=== PATIENT | female | born 1985 | race African-American/Black ===

== ENCOUNTER 2017-01-24 12:07 | Emergency (ER) | payer OTHER ==
[2017-01-24 12:12] VITALS: PULSE 77; TEMP 98.8; BMI 30.7
--- NOTE | 2017-01-24 12:46 | PDOC ---
History of Present Illness - General Chief Complaint: Pain Stated Complaint: LT SHOULDER PAIN Time Seen by Provider: 01/24/17 12:45 - History of Present Illness Initial Comments: 01/24/17 12:45 The patient is a year old female, with a significant past medical history of, who presents to the emergency department with The patient denies chest pain, shortness of breath, headache and dizziness. Denies fever, chills, nausea, vomit, diarrhea and constipation. Denies dysuria, frequency, urgency and hematuria. Allergies: Past surgical history: Social history: PMD - Past History - Past Medical History Allergies/Adverse Reactions: Allergies Allergy/AdvReac Type Severity Reaction Status Date / Time No Known Allergies Allergy Verified 01/24/17 12:12 Home Medications: Ambulatory Orders Vit/Iron Fumarate/FA [ Tablet] 1 each PO DAILY 08/06/16 Anemia: No Asthma: No Cancer: No Cardiac Disorders: No CVA: No COPD: No CHF: No Dementia: No Diabetes: No GI Disorders: No Disorders: No HTN: No Hypercholesterolemia: No Liver Disease: No Suicide Attempt (Hx): No Seizures: Yes Thyroid Disease: No - Surgical History Abdominal Surgery: No Appendectomy: No Cardiac Surgery: No Cholecystectomy: No Lung Surgery: No Neurologic Surgery: No Orthopedic Surgery: No - Immunization History Immunization Up to Date: Yes (06/2013 FLU) - Psycho/Social/Smoking Cessation Hx Anxiety: No Suicidal Ideation: No Smoking Status: No Smoking History: Never smoked Have you smoked in the past 12 months: No Number of Cigarettes Smoked Daily: 0 Information on smoking cessation initiated: No Hx Alcohol Use: No Drug/Substance Use Hx: No Substance Use Type: None Review of Systems - Review of Systems Comments:: 01/24/17 12:45 GENERAL/CONSTITUTIONAL: No fever or chills. No weakness. HEAD, EYES, EARS, NOSE AND THROAT: No change in vision. No ear pain or discharge. No sore throat. CARDIOVASCULAR: No chest pain or shortness of breath RESPIRATORY: No cough, wheezing, or hemoptysis. GASTROINTESTINAL: No nausea, vomiting, diarrhea or constipation. GENITOURINARY: No dysuria, frequency, or change in urination. MUSCULOSKELETAL: No joint or muscle swelling or pain. No neck or back pain. SKIN: No rash NEUROLOGIC: No headache, vertigo, loss of consciousness, or change in strength/ sensation. ENDOCRINE: No increased thirst. No abnormal weight change HEMATOLOGIC/LYMPHATIC: No anemia, easy bleeding, or history of blood clots. ALLERGIC/IMMUNOLOGIC: No hives or skin allergy. *Physical Exam - Vital Signs Last Vital Signs Temp Pulse Resp BP Pulse Ox 98.8 F 77 18 123/81 100 01/24/17 12:10 01/24/17 12:10 01/24/17 12:10 01/24/17 12:10 01/24/17 12:10 - Physical Exam Comments: 01/24/17 12:46 GENERAL: Awake, alert, and fully oriented, in no acute distress HEAD: No signs of trauma, normocephalic, atraumatic EYES: PERRLA, EOMI, sclera anicteric, conjunctiva clear ENT: Auricles normal inspection, hearing grossly normal, nares patent, oropharynx clear without exudates. Moist mucosa NECK: Normal ROM, supple, no lymphadenopathy, JVD, or masses LUNGS: No distress, speaks full sentences, clear to auscultation bilaterally HEART: Regular rate and rhythm, normal S1 and S2, no murmurs, rubs or gallops, peripheral pulses normal and equal bilaterally. ABDOMEN: Soft, nontender, normoactive bowel sounds. No guarding, no rebound. No masses EXTREMITIES: Normal inspection, Normal range of motion, no edema. No clubbing or cyanosis. NEUROLOGICAL: Cranial nerves II through XII grossly intact. Normal speech, normal gait, no focal sensorimotor deficits SKIN: Warm, Dry, normal turgor, no rashes or lesions noted.
[2017-01-24] MEDS ORDERED: KETOROLAC TROMETHAMINE 15 MG/ML VIAL IM ONE (13:15)
[2017-01-24] MEDS ORDERED: KETOROLAC TROMETHAMINE 15 MG/ML VIAL ONE (13:18)
--- NOTE | 2017-01-24 14:51 | PDOC ---
History of Present Illness - General Chief Complaint: Pain Stated Complaint: LT SHOULDER PAIN Time Seen by Provider: 01/24/17 12:45 - History of Present Illness Initial Comments: 01/24/17 14:43 31 F with no PMH presents to ER with 2 weeks of L shoulder pain. Pt denies trauma, denies falls. States that she has had progressively worsening pain in her L shoulder, radiating to her L upper back. Pt denies CP/SOB. Denies neck pain. Pt states that she has been carrying her baby in her left arm, which she thinks is exacerbating her pain. She presents today because the pain worsened to the point of limiting her strength. Pt denies numbness in her left arm. Denies weakness in any other extremity. Past History - Past Medical History Allergies/Adverse Reactions: Allergies Allergy/AdvReac Type Severity Reaction Status Date / Time No Known Allergies Allergy Verified 01/24/17 12:12 Home Medications: Ambulatory Orders NK [No Known Home Medication] 01/24/17 Anemia: No Asthma: No Cancer: No Cardiac Disorders: No CVA: No COPD: No CHF: No Dementia: No Diabetes: No GI Disorders: No Disorders: No HTN: No Hypercholesterolemia: No Liver Disease: No Suicide Attempt (Hx): No Seizures: Yes Thyroid Disease: No - Surgical History Abdominal Surgery: No Appendectomy: No Cardiac Surgery: No Cholecystectomy: No Lung Surgery: No Neurologic Surgery: No Orthopedic Surgery: No - Immunization History Immunization Up to Date: Yes (06/2013 FLU) - Psycho/Social/Smoking Cessation Hx Anxiety: No Suicidal Ideation: No Smoking Status: No Smoking History: Never smoked Have you smoked in the past 12 months: No Number of Cigarettes Smoked Daily: 0 Information on smoking cessation initiated: No Hx Alcohol Use: No Drug/Substance Use Hx: No Substance Use Type: None Review of Systems - Review of Systems Comments:: 01/24/17 14:45 "GENERAL/CONSTITUTIONAL: No fever or chills. No weakness. HEAD, EYES, EARS, NOSE AND THROAT: No change in vision. No ear pain or discharge. No sore throat. CARDIOVASCULAR: No chest pain or shortness of breath. RESPIRATORY: No cough, wheezing, or hemoptysis. GASTROINTESTINAL: No nausea, vomiting, diarrhea or constipation. GENITOURINARY: No dysuria, frequency, or change in urination. MUSCULOSKELETAL: + L shoulder pain SKIN: No rash NEUROLOGIC: No headache, vertigo, loss of consciousness, or change in strength/ sensation. ENDOCRINE: No increased thirst. No abnormal weight change. HEMATOLOGIC/LYMPHATIC: No anemia, easy bleeding, or history of blood clots. ALLERGIC/IMMUNOLOGIC: No hives or skin allergy. " *Physical Exam - Vital Signs Last Vital Signs Temp Pulse Resp BP Pulse Ox 98.8 F 77 18 123/81 100 01/24/17 12:10 01/24/17 12:10 01/24/17 12:10 01/24/17 12:10 01/24/17 12:10 - Physical Exam Comments: 01/24/17 14:46 "GENERAL: Awake, alert, and fully oriented, in no acute distress HEAD: No signs of trauma EYES: PERRLA, EOMI, sclera anicteric, conjunctiva clear ENT: Auricles normal inspection, hearing grossly normal, nares patent, oropharynx clear without exudates. Moist mucosa NECK: Normal ROM, supple, no lymphadenopathy, JVD, or masses LUNGS: Breath sounds equal, clear to auscultation bilaterally. No wheezes, and no crackles HEART: Regular rate and rhythm, normal S1 and S2, no murmurs, rubs or gallops ABDOMEN: Soft, nontender, normoactive bowel sounds. No guarding, no rebound. No masses EXTREMITIES: L shoulder with no deformity, abduction and internal rotation limited 2/2 pain. Full passive ROM. Distal pulses intact, sensation intact. frozen pie maker strength 5/5. BACK: no midline tenderness, mild L paraspinal c-spine TTP. NEUROLOGICAL: Cranial nerves II through XII grossly intact. Normal speech, normal gait SKIN: Warm, Dry, normal turgor, no rashes or lesions noted. " ED Treatment Course - RADIOLOGY Radiology Studies Ordered: Category Date Time Status SHOULDER-LEFT [RAD] Stat Radiology 01/24/17 13:15 Completed - Medications Given in the ED: ED Medications Discontinued Medications Generic Name Dose Route Start Last Admin Trade Name Freq PRN Reason Stop Dose Admin Ketorolac Tromethamine 15 mg 01/24/17 13:15 01/24/17 13:26 Toradol Injection - IM 01/24/17 13:16 15 mg ONCE ONE Administration Medical Decision Making - Medical Decision Making 01/24/17 14:47 31 F with 2 weeks of L shoulder pain. Likely rotator cuff injury vs tendinopathy vs impingement vs radiculopathy 2/2 carrying baby in left arm. - XR shoulder - Toradol 01/24/17 14:48 XR negative Pt to f/u with PMD for outpt MRI of C spine and shoulder. *DC/Admit/Observation/Transfer Diagnosis at time of Disposition: Left shoulder pain - Discharge Dispostion Disposition: HOME Condition at time of disposition: Good - Patient Instructions Printed Discharge Instructions: DI for Shoulder Pain Additional Instructions: Take ibuprofen or aleve every 8 hours as needed for pain. You may have a rotator cuff injury or a pinched nerve. Please follow up with your primary care doctor within 1 week. You may need an MRI of your neck or shoulder for further evaluation. Be sure to rest your shoulder and avoid heavy lifting, but begin moving it as much as tolerable to prevent frozen shoulder. - Attestations Physician Attestion: 01/24/17 14:53 I, Dr. Chiki Linares MD, attest that this document has been prepared under my direction and personally reviewed by me in its entirety. I further attest, that it accurately reflects all work, treatment, procedures and medical decision -making performed by me.
[2017-01-24 15:04] VITALS: BP 118/74
== END 2017-01-24 15:05 | disposition home or self-care (01) ==
LOC: JER 12:07 → JERFT 12:07 → JER 15:05
PROC: 3E0233Z Introduction of Anti-inflammatory into Muscle, Percutaneous Approach (ICD-10-PCS; principal; 2017-01-24)
DX: M25.512 Pain in left shoulder (principal); Y92.038 Other place in apartment as the place of occurrence of the external cause
CPT/HCPCS: 73030-TC-LT; 96372; 99282-25

== ENCOUNTER 2018-03-02 16:25 | Emergency (ER) | payer OTHER ==
--- NOTE | 2018-03-02 16:39 | PDOC ---
Rapid Medical Evaluation Chief Complaint: Pain Time Seen by Provider: 03/02/18 16:37 Medical Evaluation: Allergies Allergy/AdvReac Type Severity Reaction Status Date / Time No Known Allergies Allergy Verified 11/27/17 14:02 03/02/18 16:37 I have performed a brief in person evaluation of this patient. The patient presents with a chief complaint of: Right hand pain Pt is a 32 YO female who states "I feel like something is sticking out of my right hand." Pt denies injury/trauma. Pertinent PE: Skin: Clear Lungs: Clear Heart: RRR Abd: Nontender MS: Pt has pain upon palpation to the right thumb, no rotational deformity, can make an okay sign and fist without difficulty. Neuro intact. Neuro: Alert and oriented Psych: Appropriate affect I have ordered the following: right hand xray The patient will proceed to: pt will go to [facility] for further evaluation. Discharge Disposition - Diagnosis Hand pain, right - Referrals Referrals: Mary Finnegan [Primary Care Provider] - - Patient Instructions - Post Discharge Activity
[2018-03-02 16:40] VITALS: BP 127/50; PULSE 77; TEMP 98.7; BMI 32.5
--- NOTE | 2018-03-02 17:26 | PDOC ---
History of Present Illness - General Chief Complaint: Pain Stated Complaint: RIGHT HAND PAIN Time Seen by Provider: 03/02/18 16:37 - History of Present Illness Initial Comments: 32-year-old female with a past medical history significant for depression and seizure disorder. She takes Keppra and Abilify presents for evaluation of atraumatic onset of right wrist pain. She states yesterday when she was going to open a door, she felt a sharp pain in her right wrist. She points to the radial aspect on the volar surface of the right wrist. No other associated symptoms. 03/02/18 17:23 Past History - Past Medical History Allergies/Adverse Reactions: Allergies Allergy/AdvReac Type Severity Reaction Status Date / Time No Known Allergies Allergy Verified 03/02/18 16:37 Home Medications: Ambulatory Orders NK [No Known Home Medication] 03/02/18 Anemia: No Asthma: No Cancer: No Cardiac Disorders: No CVA: No COPD: Yes CHF: No Dementia: No Diabetes: No GI Disorders: No Disorders: No HTN: No Hypercholesterolemia: No Liver Disease: No Psychiatric Problems: Yes (derpression) Seizures: Yes Thyroid Disease: No - Surgical History Abdominal Surgery: Yes (HERNIA) Appendectomy: No Cardiac Surgery: No Cholecystectomy: No Lung Surgery: No Neurologic Surgery: No Orthopedic Surgery: No - Immunization History Immunization Up to Date: Yes (06/2013 FLU) - Suicide/Smoking/Psychosocial Hx Smoking Status: No Smoking History: Never smoked Have you smoked in the past 12 months: No Number of Cigarettes Smoked Daily: 0 Information on smoking cessation initiated: No Hx Alcohol Use: No Drug/Substance Use Hx: No Substance Use Type: None Review of Systems - Review of Systems Musculoskeletal: Yes: See HPI, Joint Pain All Other Systems: Reviewed and Negative *Physical Exam - Vital Signs Last Vital Signs Temp Pulse Resp BP Pulse Ox 98.7 F 77 18 127/50 L 100 03/02/18 16:37 03/02/18 16:37 03/02/18 16:37 03/02/18 16:37 03/02/18 16:37 - Physical Exam Comments: Right wrist skin color and temperature are normal, there is no swelling. Range of motion is full and nonpainful. There is a small nonfluctuant tender freely mobile firm mass on the radial aspect of the volar surface of the wrist about subcentimeter in diameter. There is associated tenderness with normal light overlying skin color and temperature. There are no gross sensorimotor deficits she is neurovascularly intact. 03/02/18 17:24 Medical Decision Making - Medical Decision Making X-ray show no evidence of fracture trimer destructive process. This is a ganglion cyst which can be treated conservatively ORBIT operative intervention. I will refer her to hand surgery for further evaluation and treatment options. 03/02/18 17:24 *DC/Admit/Observation/Transfer Diagnosis at time of Disposition: Ganglion cyst of volar aspect of right wrist Diagnosis at time of Disposition: (Ruled Out): Hand pain, right, Ganglion cyst of dorsum of right wrist - Discharge Dispostion Disposition: HOME Condition at time of disposition: Stable Decision to Admit order: No - Referrals Referrals: Mary Finnegan [Primary Care Provider] - Steven Flores MD [Staff Physician] - - Patient Instructions Printed Discharge Instructions: DI Ganglion Cyst, Ganglion Cyst Additional Instructions: Return to the emergency room should symptoms worsen ago on resolved. May take Tylenol and Motrin as directed for pain. Follow-up with hand surgery in one to 2 days for further evaluation and treatment options. - Post Discharge Activity
== END 2018-03-02 17:30 | disposition home or self-care (01) ==
LOC: JERFT 16:25
DX: M67.431 Ganglion, right wrist (principal); G40.909 Epilepsy, unspecified, not intractable, without status epilepticus; F32.9 Major depressive disorder, single episode, unspecified
CPT/HCPCS: 73130-TC-RT-FY; 99281-25

== ENCOUNTER 2018-04-10 19:54 | Emergency (ER) | payer OTHER ==
--- NOTE | 2018-04-10 20:00 | PDOC ---
Rapid Medical Evaluation Time Seen by Provider: 04/10/18 20:00 Medical Evaluation: Allergies Allergy/AdvReac Type Severity Reaction Status Date / Time No Known Allergies Allergy Verified 03/02/18 16:37 04/10/18 20:00 I have performed a brief in person evaluation of this patient. +H/O seizure/last seizre in Jan The patient presents with a chief complaints of: cp to left shoulder with left temporal HAx2h while shopping at [employer]. Pt denies stress while shopping today. LMP:03/21/2018 Pertinent physical exam findings:L/S CTA, RRR S1S2 I have ordered the following: cbc/cmp/cardiac profile, ua, upreg, ekg ekg done in triage The patient will proceed to the ED for further evaluation.
[2018-04-10 20:14] VITALS: BP 149/78; PULSE 75; TEMP 98.5; BMI 32.4
--- NOTE | 2018-04-10 20:25 | PDOC ---
History of Present Illness - General Chief Complaint: Chest Pain Stated Complaint: CHEST PAIN Time Seen by Provider: 04/10/18 20:00 - History of Present Illness Initial Comments: 32 year odl female with PMH of seizures (last one 2 months prior, on Keppra) presenting with sudden onset left sided chest pain for the past three hours. [place] and began to feel very weak and lightheaded then felt a left sided chest pain that radiated to her shoulder, with a pressure-like, 5/10 intensity, non-exertional, and not copresenting with nausea/ vomiting. Patient denies any recent travel, OCP use, history of clots, family MIs, but does have one aunt who had a DVT. She also noticed some bilateral thigh pain while walking as well. Denies SOB, cough, fevers, chills, or other symptoms. 04/10/18 20:55 Past History - Past Medical History Allergies/Adverse Reactions: Allergies Allergy/AdvReac Type Severity Reaction Status Date / Time No Known Allergies Allergy Verified 03/02/18 16:37 Home Medications: Ambulatory Orders NK [No Known Home Medication] 03/02/18 Anemia: No Asthma: No Cancer: No Cardiac Disorders: No CVA: No COPD: Yes CHF: No Dementia: No Diabetes: No GI Disorders: No Disorders: No HTN: No Hypercholesterolemia: No Liver Disease: No Psychiatric Problems: Yes (derpression) Seizures: Yes Thyroid Disease: No - Surgical History Abdominal Surgery: Yes (HERNIA) Appendectomy: No Cardiac Surgery: No Cholecystectomy: No Lung Surgery: No Neurologic Surgery: No Orthopedic Surgery: No - Immunization History Immunization Up to Date: Yes (06/2013 FLU) - Suicide/Smoking/Psychosocial Hx Smoking Status: No Smoking History: Never smoked Have you smoked in the past 12 months: No Number of Cigarettes Smoked Daily: 0 Information on smoking cessation initiated: No Hx Alcohol Use: No Drug/Substance Use Hx: No Substance Use Type: None Review of Systems - Review of Systems Constitutional: No: Chills, Diaphoresis, Fever, Loss of Appetite HEENTM: No: Blurred Vision, Tearing, Double Vision Respiratory: No: Cough, Orthopnea, Shortness of Breath Cardiac (ROS): No: Chest Pain, Edema, Irregular Heart Rate ABD/GI: No: Diarrhea, Nausea, Vomiting : No: Burning, Dysuria, Discharge Musculoskeletal: No: Back Pain, Joint Pain, Joint Swelling Integumentary: No: Lesions, Lumps, Pallor Neurological: Yes: Seizure. No: Headache, Numbness, Paresthesia, Unsteady Gait Psychiatric: No: Anxiety, Depression Endocrine: No: Excessive Sweating, Flushing, Unexplained Weight Gain *Physical Exam - Vital Signs Last Vital Signs Temp Pulse Resp BP Pulse Ox 98.5 F 75 20 149/78 100 04/10/18 20:12 04/10/18 20:12 04/10/18 20:12 04/10/18 20:12 04/10/18 20:12 - Physical Exam General Appearance: Yes: Nourished, Appropriately Dressed. No: Apparent Distress HEENT: positive: EOMI, CATHERINE, Normal ENT Inspection, Normal Voice Neck: positive: Trachea midline, Normal Thyroid, Supple. negative: Tender, Rigid Respiratory/Chest: positive: Chest Tender (TTP over left 2nd and 3rd rib.), Lungs Clear, Normal Breath Sounds. negative: Respiratory Distress, Accessory Muscle Use Cardiovascular: positive: Regular Rhythm, Regular Rate Gastrointestinal/Abdominal: positive: Normal Bowel Sounds, Flat, Soft. negative : Tender Lymphatic: negative: Adenopathy, Tenderness Musculoskeletal: positive: Normal Inspection. negative: CVA Tenderness Extremity: positive: Normal Capillary Refill, Normal Inspection, Normal Range of Motion. negative: Tender Integumentary: positive: Normal Color, Dry, Warm Neurologic: positive: Fully Oriented, Alert, Normal Mood/Affect, Normal Response , Motor Strength 5/5 ED Treatment Course - LABORATORY CBC & Chemistry Diagram: 04/10/18 20:14 04/10/18 20:14 Medical Decision Making - Medical Decision Making 32 year odl with reproducible chest pain on the right side of her upper chest for the past few hours that is non-exertional and does not cause SOB. Ruled out by PERC criteria for PE. EKG showing rate 67, KY 154, QRS 92, QTc 426, normal axis and no st-t wave changes, prolonged QT, Brugada signs, or delta wave. Labs wnl, and CXR also clear. Pain improved with ibuprofen 600, 1L NS, and ofirmev. Will DC with Tylenol and ibuprofen use instructions along with f/u with neurologist tye. 04/10/18 21:45 *DC/Admit/Observation/Transfer Diagnosis at time of Disposition: Chest pain Qualifiers: Chest pain type: unspecified Qualified Code(s): R07.9 - Chest pain, unspecified Headache Qualifiers: Headache type: unspecified Headache chronicity pattern: acute headache Intractability: not intractable Qualified Code(s): R51 - Headache - Discharge Dispostion Disposition: HOME Condition at time of disposition: Improved Decision to Admit order: No - Referrals Referrals: Mary Finnegan [Primary Care Provider] - Alona Chen MD [Staff Physician] - - Patient Instructions Printed Discharge Instructions: DI for Atypical Chest Pain, DI for Headache Additional Instructions: Please use Tylenol and ibuprofen for the headache and chest pain. Please follow up with Dr. Vernon next week. Please return to the Ed if you have new or worsening symptoms. - Post Discharge Activity Forms/Work/School Notes: Back to Work
[2018-04-10 20:34] LABS: BASO % 0.2 % (0-2.0); EOS % 0.4 % (0-4.5); HEMATOCRIT 34.2 % (32.4-45.2); HEMOGLOBIN 12.2 GM/dL (10.7-15.3); LYMPH % 17.1 % (8-40); MCH 30.1 pg (25.7-33.7); MCHC 35.8 g/dl (32.0-36.0); MEAN CELL VOLUME 84.1 fl (80-96); MEAN PLT VOLUME 9.1 fl (7.5-11.1); MONO % 3.8 % (3.8-10.2); NEUT % 78.5 % (42.8-82.8); PLATELET COUNT 249 K/MM3 (134-434); RBC 4.06 M/mm3 (3.60-5.2); RDW 13.7 % (11.6-15.6); WHITE BLOOD COUNT 11.8 K/mm3 (4.0-10.0)
[2018-04-10 20:37] LABS: URINE APPEARANCE CLOUDY; URINE BILIRUBIN NEGATIVE (<2.0 mg/dL); URINE COLOR LTYELLOW; URINE GLUCOSE (UA) NEGATIVE (NEGATIVE); URINE KETONE NEGATIVE (NEGATIVE); URINE LEUK ESTERASE 1+ (NEGATIVE); URINE NITRITE NEGATIVE (NEGATIVE); URINE PROTEIN NEGATIVE (NEGATIVE); URINE UROBILINOGEN NEGATIVE mg/dL (0.2-1.0)
[2018-04-10 20:39] LABS: HCG,QUALITATIVE URINE Negative
[2018-04-10] MEDS ORDERED: IBUPROFEN 600 MG TABLET (FP) PO ONE ×2 (20:54→21:35)
[2018-04-10] MEDS ORDERED: SODIUM CHLORIDE 0.9% 500 ML INFUS.BAG IV ONE (20:55)
[2018-04-10 20:56] LABS: EPI CELLS MANY /HPF (FEW); URINE MUCUS RARE
[2018-04-10 21:02] LABS: BLOOD UREA NITROGEN 15 mg/dL (7-18); CHLORIDE 105 mmol/L (98-107); CO2 26 mmol/L (21-32); CREATININE 0.8 mg/dL (0.55-1.3); GLUCOSE,RANDOM 90 mg/dL (74-106); POTASSIUM 3.8 mmol/L (3.5-5.1); SODIUM 139 mmol/L (136-145)
[2018-04-10 21:03] LABS: ALBUMIN 3.6 g/dl (3.4-5.0); ALK PHOS 69 U/L (45-117); ANION GAP 9 MMOL/L (8-16); BILIRUBIN,TOTAL 0.2 mg/dL (0.2-1); CALCIUM 8.6 mg/dL (8.5-10.1); SGOT/AST 10 U/L (15-37); SGPT/ALT 13 U/L (13-61); TOT PROT 7.5 g/dl (6.4-8.2)
[2018-04-10] MEDS ORDERED: ACETAMINOPHEN 1000 MG/100 ML VIAL (NON FORMULARY) IVPB ONE (21:52)
--- NOTE | 2018-04-10 22:05 | PDOC ---
Attending Attestation - Resident Resident Name: Jamie Zuniga - ED Attending Attestation I have performed the following: I have examined & evaluated the patient, The case was reviewed & discussed with the resident, I agree w/resident's findings & plan - HPI HPI: 04/10/18 22:41 Home with - Medical Decision Making 04/10/18 21:53 Pt comes with feeling of heat and dizziness and weakness when she went to [employer] today for black Friday shopping. She ate enough breakfast and she had slept well. States that she had taken off her winter coat because she felt hot. She was nervous because she developed a headache at the store and she was worried that she would have a seizure Pt is compliant with her daily 1000mg of keppra. However, her last seizure was 2 months ago and she gets breakthru seizures. 04/10/18 22:37 Pt will follow with her neurologist. Labs are normal, and her headache is improving with motrin and tylenol and IV saline bolus. 04/10/18 22:42 Home with neuro follow up. <Narcisa Deshpande - Last Filed: 04/10/18 22:36> - HPI HPI: 04/10/18 22:57 The patient is a 32 year old female with past medical history significant for seizures (on 1000mg Keppra) presents to the emergency department with chest pain. The patient reports she was at [employer] earlier today when an acute onset of dizziness presented, the patient states she had to take off her jacket and had for sit down for a second. The patient following the episode, her chest started to hurt and L. sided headache. The patient reports her last seizure episode was 2 months ago. Denies fever, chills, shortness of breath, weakness, numbness, loss of sensation. Allergies: NKA Neurologist: Dr. Chen. - Physicial Exam PE: 04/10/18 22:58 GENERAL: Awake, alert, and fully oriented, in no acute distress HEAD: No signs of trauma EYES: PERRLA, EOMI, sclera anicteric, conjunctiva clear ENT: Auricles normal inspection, hearing grossly normal, nares patent, oropharynx clear without exudates. Moist mucosa NECK: Normal ROM, supple, no lymphadenopathy, JVD, or masses LUNGS: Breath sounds equal, clear to auscultation bilaterally. No wheezes, and no crackles HEART: Regular rate and rhythm, normal S1 and S2, no murmurs, rubs or gallops ABDOMEN: No flank pain. Soft, nontender, normoactive bowel sounds. No guarding , no rebound. No masses. EXTREMITIES: Normal range of motion, no edema. No clubbing or cyanosis. No cords, erythema, or tenderness NEUROLOGICAL: 5/5 strength. Cranial nerves II through XII grossly intact. Normal speech, normal gait SKIN: Warm, Dry, normal turgor, no rashes or lesions noted. <Gretel Gibson - Last Filed: 04/10/18 22:59>
[2018-04-10] MEDS ORDERED: ACETAMINOPHEN INJECTION 100 ML IVPB ONE (22:09)
--- NOTE | 2018-04-11 11:59 | EKG ---
Test Reason : Blood Pressure : / mmHG Vent. Rate : 067 BPM Atrial Rate : 067 BPM P-R Int : 154 ms QRS Dur : 092 ms QT Int : 404 ms P-R-T Axes : 048 053 045 degrees QTc Int : 426 ms NORMAL SINUS RHYTHM WITH SINUS ARRHYTHMIA NORMAL ECG WHEN COMPARED WITH ECG OF 27-DEC-2014 16:03, NO SIGNIFICANT CHANGE WAS FOUND Confirmed by SURI SWIFT MD ([id number]) on 04/11/2018 11:59:34 AM Referred By: Confirmed By:SURI SWIFT MD
== END 2018-04-10 23:14 | disposition home or self-care (01) ==
LOC: JER 19:54
PROC: 3E033NZ Introduction of Analgesics, Hypnotics, Sedatives into Peripheral Vein, Percutaneous Approach (ICD-10-PCS; principal; 2018-04-10)
DX: R07.9 Chest pain, unspecified (principal); R51 Headache; G40.909 Epilepsy, unspecified, not intractable, without status epilepticus
CPT/HCPCS: 36415; 71046-TC-FY; 80053; 81003; 81015; 82550; 84484; 84703; 85025; 93005; 93010; 96374; 99284-25; J0131

== ENCOUNTER 2018-07-18 17:24 | Emergency (ER) | payer OTHER ==
[2018-07-18 18:07] VITALS: BP 109/70; PULSE 77; TEMP 98.5; BMI 32.4
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
== END 2018-07-18 19:56 | disposition home or self-care (01) ==
LOC: JERFT 17:24
DX: T23.102A Burn of first degree of left hand, unspecified site, initial encounter (principal); T23.012A Burn of unspecified degree of left thumb (nail), initial encounter; T22.112A Burn of first degree of left forearm, initial encounter; X10.2XXA Contact with fats and cooking oils, initial encounter; Y93.G3 Activity, cooking and baking; Y92.030 Kitchen in apartment as the place of occurrence of the external cause; Y99.8 Other external cause status
CPT/HCPCS: 99281-25

== ENCOUNTER 2019-06-15 18:42 | Emergency (ER) | payer OTHER ==
[2019-06-15 18:54] VITALS: BP 134/73; PULSE 103; TEMP 100.2; BMI 34.6
[2019-06-15] MEDS ORDERED: ACETAMINOPHEN 325 MG TABLET (FP) ONE (20:26)
[2019-06-15] MEDS ORDERED: ONDANSETRON *ODT* 4 MG TABLET ONE (20:26)
[2019-06-15] MEDS ORDERED: ONDANSETRON *ODT* 4 MG TABLET SL ONE (20:27)
[2019-06-15] MEDS ORDERED: ACETAMINOPHEN 325 MG TABLET (FP) PO ONE (20:28)
--- NOTE | 2019-06-15 21:45 | PDOC ---
History of Present Illness <WayneAmber Sania - Last Filed: 06/15/19 21:51> - History of Present Illness Initial Comments: Ms. Guzman is a 33 y/o female with no significant PMH presenting today with fever, nausea, vomiting x6, that started this afternoon around 1pm. Reports that she was visiting her mom who has similar symptoms. Denies chills. Denies chest pain or shortness of breath. Denies any abdominal pain. Reports muscle aches in both legs. Reports associated diarrhea. Denies dysuria. Denies blood in the vomit or stool. <Asim Rosario - Last Filed: 06/15/19 22:29> - General Chief Complaint: Vomiting/Diarrhea Stated Complaint: VOMITING/DIARHHEA Time Seen by Provider: 06/15/19 21:18 Past History <WayneAmber Sania - Last Filed: 06/15/19 21:51> - Past Medical History Anemia: No Asthma: No Cancer: No Cardiac Disorders: No CVA: No COPD: Yes CHF: No Dementia: No Diabetes: No GI Disorders: No Disorders: No HTN: No Hypercholesterolemia: No Liver Disease: No Psychiatric Problems: Yes (derpression) Seizures: Yes Thyroid Disease: No - Surgical History Abdominal Surgery: Yes (HERNIA) Appendectomy: No Cardiac Surgery: No Cholecystectomy: No Lung Surgery: No Neurologic Surgery: No Orthopedic Surgery: No - Immunization History Immunization Up to Date: Yes (06/2013 FLU) - Psycho Social/Smoking Cessation Hx Smoking Status: No Smoking History: Never smoked Have you smoked in the past 12 months: No Number of Cigarettes Smoked Daily: 0 Hx Alcohol Use: No Drug/Substance Use Hx: No Substance Use Type: None <Asim Rosario - Last Filed: 06/15/19 22:29> - Past Medical History Allergies/Adverse Reactions: Allergies Allergy/AdvReac Type Severity Reaction Status Date / Time No Known Allergies Allergy Verified 06/15/19 18:51 Home Medications: Ambulatory Orders Ondansetron HCl [Zofran] 8 mg PO TID 3 Days #9 tablet 06/15/19 Review of Systems - Review of Systems Comments:: GENERAL/CONSTITUTIONAL: Reports fever. No chills. No weakness._ HEAD, EYES, EARS, NOSE AND THROAT: No change in vision. No change in hearing. No sore throat._ CARDIOVASCULAR: No chest pain or shortness of breath_ RESPIRATORY: Denies cough, hemoptysis_ GASTROINTESTINAL: Reports nausea, vomiting, diarrhea. GENITOURINARY: No dysuria, frequency, or change in urination._ MUSCULOSKELETAL: Reports bilateral lower extremity muscle aches. No neck or back pain._ SKIN: No rash_ NEUROLOGIC: No headache, vertigo, loss of consciousness, or change in strength/ sensation._ ENDOCRINE: No increased thirst. No abnormal weight change_ HEMATOLOGIC/LYMPHATIC: No anemia, easy bleeding, or history of blood clots._ ALLERGIC/IMMUNOLOGIC: No hives or skin allergy._ <Asim Rosario - Last Filed: 06/15/19 22:29> *Physical Exam - Vital Signs Last Vital Signs Temp Pulse Resp BP Pulse Ox 100.2 F H 103 H 16 134/73 99 06/15/19 18:51 06/15/19 18:51 06/15/19 18:51 06/15/19 18:51 06/15/19 18:51 <Amber Black - Last Filed: 06/15/19 21:51> - Vital Signs Last Vital Signs Temp Pulse Resp BP Pulse Ox 100.2 F H 103 H 16 134/73 99 06/15/19 18:51 06/15/19 18:51 06/15/19 18:51 06/15/19 18:51 06/15/19 18:51 - Physical Exam GENERAL: Awake, alert, and oriented to person/place/time, in no acute distress_ HEAD: No signs of trauma, normoc ephalic, atraumatic _ EYES: PERRLA, EOMI, sclera anicteric, conjunctiva clear_ ENT: Hearing grossly normal, nares patent, oropharynx clear without exudates. No uvular deviation. Moist mucosa_ NECK: Normal ROM, supple, no lymphadenopathy, JVD, or masses_ LUNGS: No distress, speaks in full sentences, clear to auscultation bilaterally _ HEART: Regular rate and rhythm, normal S1 and S2, no murmurs appreciated, peripheral pulses normal and equal bilaterally._ ABDOMEN: Soft, nontender, normoactive bowel sounds. No guarding, no rebound. No masses_ EXTREMITIES: Normal inspection, Normal range of motion, no edema. No clubbing or cyanosis_ NEUROLOGICAL: Cranial nerves II through XII grossly intact. Normal speech, normal gait, no focal sensorimotor deficits _ SKIN: Warm, Dry, normal turgor, no rashes or lesions noted_ <Asim Rosario - Last Filed: 06/15/19 22:29> ED Treatment Course - Medications Given in the ED: ED Medications Discontinued Medications Generic Name Dose Route Start Last Admin Trade Name Freq PRN Reason Stop Dose Admin Acetaminophen 975 mg 06/15/19 20:28 06/15/19 20:28 Tylenol - PO 06/15/19 20:29 975 mg NOW ONE Administration Ondansetron HCl 4 mg 06/15/19 20:27 06/15/19 20:28 Zofran Odt - SL 06/15/19 20:28 4 mg NOW ONE Administration <Amber Black - Last Filed: 06/15/19 21:51> - Medications Given in the ED: ED Medications Discontinued Medications Generic Name Dose Route Start Last Admin Trade Name Freq PRN Reason Stop Dose Admin Acetaminophen 975 mg 06/15/19 20:28 06/15/19 20:28 Tylenol - PO 06/15/19 20:29 975 mg NOW ONE Administration Ondansetron HCl 4 mg 06/15/19 20:27 06/15/19 20:28 Zofran Odt - SL 06/15/19 20:28 4 mg NOW ONE Administration <Asim Rosario - Last Filed: 06/15/19 22:29> Medical Decision Making - Medical Decision Making 33F no PMH presenting with nausea/vomiting/diarrhea x6 and fever. Abdomen is non -tender. Will plan to PO challenge and d/c home with PO fluids at home and Zofran. -tylenol -zofran 06/15/19 21:50 Pt reassessed. Able to tolerate ice chips. Plan to d/c home with Zofran. All questions answered. Pt verbalized understanding and agreement with plan. Return precautions given. <Asim Rosario - Last Filed: 06/15/19 22:29> Discharge <Amber Black - Last Filed: 06/15/19 21:51> - Discharge Information Problems reviewed: Yes - Admission No <Asim Rosario - Last Filed: 06/15/19 22:29> - Discharge Information Clinical Impression/Diagnosis: Viral gastroenteritis Condition: Stable Disposition: HOME - Additional Discharge Information Prescriptions: Ondansetron HCl [Zofran] 8 mg PO TID 3 Days #9 tablet - Follow up/Referral Referrals: Mary Finnegan [Primary Care Provider] - - Patient Discharge Instructions Patient Printed Discharge Instructions: DI for Viral Gastroenteritis -- Adult, Gastroenteritis Diet Additional Instructions: Please keep yourself hydrated with fluids first, and advance your diet as tolerated. Please take Zofran as needed for your nausea. If you experience any new, worsening, or concerning symptoms, including dizziness, heart racing, blood in the vomit or stool, or any other concerns, please return to the emergency department. - Post Discharge Activity
--- NOTE | 2019-06-15 21:58 | PDOC ---
Documentation entered by Delmer Rm SCRIBE, acting as scribe for Amber Black MD. Amber Black MD: This documentation has been prepared by the Sujey spaulding Xhesika, SCRIBE, under my direction and personally reviewed by me in its entirety. I confirm that the documentation accurately reflects all work, treatment, procedures, and medical decision making performed by me. Attending Attestation - Resident Resident Name: RosarioAsim - ED Attending Attestation I have performed the following: I have examined & evaluated the patient, The case was reviewed & discussed with the resident, I agree w/resident's findings & plan, Exceptions are as noted - HPI HPI: 06/15/19 21:55 The patient is a 33 year old female with no significant PMH of who presents to the emergency department for fever, nausea, 6 episodes of nbnb emesis and diarrhea since 1pm. Patient states mother is endorsing similar symptoms. The patient denies abdominal pain, chest pain, shortness of breath, headache and dizziness. Denies chills, cough, and constipation. Denies dysuria, frequency, urgency and hematuria. Allergies: NKDA PCP: Mary Alegre - Physicial Exam PE: 06/15/19 21:56 GENERAL: Awake, alert, and fully oriented, in no acute distress HEAD: No signs of trauma EYES: PERRLA, EOMI, sclera anicteric, conjunctiva clear ENT: Auricles normal inspection, hearing grossly normal, nares patent, oropharynx clear without exudates. Moist mucosa NECK: Normal ROM, supple, no lymphadenopathy, JVD, or masses LUNGS: Breath sounds equal, clear to auscultation bilaterally. No wheezes, and no crackles HEART: Regular rate and rhythm, normal S1 and S2, no murmurs, rubs or gallops ABDOMEN: Soft, nontender, normoactive bowel sounds. No guarding, no rebound. No masses EXTREMITIES: Normal range of motion, no edema. No clubbing or cyanosis. No cords, erythema, or tenderness NEUROLOGICAL: Cranial nerves II through XII grossly intact. Normal speech, normal gait SKIN: Warm, Dry, normal turgor, no rashes or lesions noted. - Medical Decision Making 06/15/19 21:56 33-year-old female presents with nausea vomiting diarrhea started this afternoon Benign abdominal exam imp gastroenteritis Patient will be given Zofran sublingual prescription
== END 2019-06-15 23:11 | disposition home or self-care (01) ==
LOC: JERFT 18:42 → JER 18:42
DX: A08.4 Viral intestinal infection, unspecified (principal); B97.89 Other viral agents as the cause of diseases classified elsewhere
CPT/HCPCS: 99281-25; Q0162

== ENCOUNTER 2020-10-15 13:52 | Emergency (ER) | payer OTHER ==
[2020-10-15 14:07] VITALS: BP 109/68; PULSE 90; TEMP 98.5; BMI 34.7
[2020-10-15] MEDS ORDERED: ACETAMINOPHEN 325 MG TABLET (FP) PO ONE (14:49)
[2020-10-15] MEDS ORDERED: ACETAMINOPHEN 325 MG TABLET (FP) ONE (15:16)
[2020-10-15 15:20] LABS: BASO % 0.6 % (0-2.0); HEMATOCRIT 25.7 % (32.4-45.2); HEMOGLOBIN 8.9 GM/dL (10.7-15.3); LYMPH % 24.6 % (8-40); MCH 29.7 pg (25.7-33.7); MCHC 34.6 g/dl (32.0-36.0); MEAN CELL VOLUME 85.9 fl (80-96); MEAN PLT VOLUME 9.3 fl (7.5-11.1); MONO % 5.1 % (3.8-10.2); NEUT % 67.7 % (42.8-82.8); PLATELET COUNT 274 K/MM3 (134-434); RDW 14.1 % (11.6-15.6); WHITE BLOOD COUNT 9.1 K/mm3 (4.0-10.0)
[2020-10-15 15:28] LABS: INR 1.06 (0.83-1.09)
[2020-10-15 15:31] LABS: ACTIVATED PTT 28.9 SECONDS (25.2-36.5)
[2020-10-15 15:49] LABS: CALCIUM 8.1 mg/dL (8.5-10.1)
[2020-10-15 15:50] LABS: BLOOD UREA NITROGEN 11.6 mg/dL (7-18)
[2020-10-15 15:53] LABS: CREATININE 0.6 mg/dL (0.55-1.3)
== END 2020-10-15 16:38 | disposition home or self-care (01) ==
LOC: JER 13:52
DX: R20.2 Paresthesia of skin (principal)
CPT/HCPCS: 36415; 80048; 84703; 85025; 85610; 85730; 93005; 93010; 93971-TC; 99285-25

== ENCOUNTER 2021-02-06 15:08 | Emergency (ER) | payer OTHER ==
[2021-02-06 15:45] VITALS: BMI 29.9
[2021-02-06 18:46] LABS: BASO % 0.3 % (0-2.0); EOS % 2.2 % (0-4.5); HEMOGLOBIN 12.2 GM/dL (10.7-15.3); LYMPH % 25.1 % (8-40); MCH 27.7 pg (25.7-33.7); MCHC 33.8 g/dl (32.0-36.0); MEAN CELL VOLUME 81.9 fl (80-96); MEAN PLT VOLUME 8.7 fl (7.5-11.1); NEUT % 68.4 % (42.8-82.8); PLATELET COUNT 258 10^3/uL (134-434); RDW 14.9 % (11.6-15.6); WHITE BLOOD COUNT 11.7 K/mm3 (4.0-10.0)
[2021-02-06 18:53] LABS: INR 0.89 (0.83-1.09); PROTHROMBIN TIME (PATIENT) 10.9 SEC (9.7-13.0)
[2021-02-06 19:03] LABS: CHLORIDE 104 mmol/L (98-107); SODIUM 137 mmol/L (136-145)
[2021-02-06 19:05] LABS: CALCIUM 8.6 mg/dL (8.5-10.1)
[2021-02-06 19:06] LABS: ALBUMIN 3.8 g/dl (3.4-5.0); ANION GAP 7 MMOL/L (8-16); BLOOD UREA NITROGEN 11.6 mg/dL (7-18); CO2 26 mmol/L (21-32); GLUCOSE,RANDOM 80 mg/dL (74-106)
[2021-02-06 19:09] LABS: CREATININE 0.7 mg/dL (0.55-1.3); SGOT/AST 7 U/L (15-37); SGPT/ALT 11 U/L (13-61)
[2021-02-06 19:10] LABS: BILIRUBIN,TOTAL 0.2 mg/dL (0.2-1); TOT PROT 7.8 g/dl (6.4-8.2)
[2021-02-06 19:11] LABS: ALK PHOS 63 U/L (45-117)
[2021-02-06] MEDS ORDERED: methylPREDNISolone NA SUCC 125 MG/2 ML VIAL IVPUSH ONE (20:58)
[2021-02-06] MEDS ORDERED: ONDANSETRON 4 MG/2 ML VIAL IVPUSH ONE (20:58)
[2021-02-06] MEDS ORDERED: methylPREDNISolone NA SUCC 125 MG/2 ML VIAL ONE (22:00)
[2021-02-06] MEDS ORDERED: ONDANSETRON 4 MG/2 ML VIAL ONE (22:00)
[2021-02-07 02:12] VITALS: BP 100/61; PULSE 76; TEMP 98.4
== END 2021-02-07 05:22 | disposition home or self-care (01) ==
LOC: JERFT 15:08 → JER 15:08
PROC: 3E033NZ Introduction of Analgesics, Hypnotics, Sedatives into Peripheral Vein, Percutaneous Approach (ICD-10-PCS; principal; 2021-02-06)
PROC: 3E033GC Introduction of Other Therapeutic Substance into Peripheral Vein, Percutaneous Approach (ICD-10-PCS; 2021-02-06)
PROC: 3E033GC Introduction of Other Therapeutic Substance into Peripheral Vein, Percutaneous Approach (ICD-10-PCS; 2021-02-06)
DX: R07.9 Chest pain, unspecified (principal)
CPT/HCPCS: 36415; 71046-TC-FY; 71275-TC; 80053; 82550; 84484; 84703; 85025; 85379; 85610; 93005; 93010; 96374; 96375; 99285-25

== ENCOUNTER 2022-10-18 11:41 | Emergency (ER) | payer OTHER ==
[2022-10-18 11:57] VITALS: RESP 17; TEMP 98.3; BMI 33.3
[2022-10-18] MEDS ORDERED: METOCLOPRAMIDE HCL INJECTION 10 MG/2 ML VIAL IVPUSH PRN (12:22)
[2022-10-18] MEDS ORDERED: ACETAMINOPHEN 1000 MG/100 ML BAG IVPB ONE (12:22)
[2022-10-18] MEDS ORDERED: SODIUM CHLORIDE 0.9% 500 ML INFUS.BAG IV ONE (12:22)
[2022-10-18] MEDS ORDERED: ACETAMINOPHEN INJECTION 100 ML IVPB ONE (12:39)
[2022-10-18 13:25] LABS: BASO % 0.4 % (0-2.0); EOS % 0.8 % (0-4.5); HEMATOCRIT 31.7 % (32.4-45.2); HEMOGLOBIN 10.9 GM/dL (10.7-15.3); LYMPH % 20.1 % (8-40); MCHC 34.2 g/dl (32.0-36.0); MEAN CELL VOLUME 78.8 fl (80-96); MEAN PLT VOLUME 9.5 fl (7.5-11.1); MONO % 4.7 % (3.8-10.2); PLATELET COUNT 267 10^3/uL (134-434); RBC 4.02 M/mm3 (3.60-5.2); RDW 15.4 % (11.6-15.6); WHITE BLOOD COUNT 10.2 K/mm3 (4.0-10.0)
[2022-10-18 14:24] LABS: ALBUMIN 3.5 g/dl (3.4-5.0); BLOOD UREA NITROGEN 11.8 mg/dL (7-18); CALCIUM 8.9 mg/dL (8.5-10.1); MAGNESIUM 2.3 mg/dL (1.8-2.4)
[2022-10-18 14:27] LABS: CREATININE 0.8 mg/dL (0.55-1.3)
[2022-10-18 14:29] LABS: BILIRUBIN,TOTAL 0.3 mg/dL (0.2-1); TOT PROT 7.4 g/dl (6.4-8.2)
[2022-10-18 15:44] VITALS: BP 148/72; PULSE 79
== END 2022-10-18 15:52 | disposition home or self-care (01) ==
LOC: JER 11:41 → JERFT 11:41 → JER 15:52
PROC: 3E033NZ Introduction of Analgesics, Hypnotics, Sedatives into Peripheral Vein, Percutaneous Approach (ICD-10-PCS; principal; 2022-10-18)
DX: R51.9 Headache, unspecified (principal); R42 Dizziness and giddiness
CPT/HCPCS: 36415; 70450-TC; 80053; 83735; 84703; 85025; 99284-25

== ENCOUNTER 2023-05-26 23:06 | Emergency (ER) | payer OTHER ==
[2023-05-26 23:13] VITALS: TEMP 98.5; BMI 33.3
[2023-05-27] MEDS ORDERED: LACTATED RINGERS SOLUTION 1000 ML INFUS.BAG IV ONE (03:28)
[2023-05-27] MEDS ORDERED: ACETAMINOPHEN 1000 MG/100 ML BAG IVPB ONE (03:28)
[2023-05-27] MEDS ORDERED: METOCLOPRAMIDE HCL INJECTION 10 MG/2 ML VIAL IVPB ONE (03:28)
[2023-05-27] MEDS ORDERED: ACETAMINOPHEN INJECTION 100 ML IVPB ONE (03:36)
[2023-05-27] MEDS ORDERED: METOCLOPRAMIDE HCL INJECTION 10 MG/2 ML VIAL ONE (03:36)
[2023-05-27 05:29] VITALS: BP 120/75; PULSE 80; RESP 19
== END 2023-05-27 05:36 | disposition home or self-care (01) ==
LOC: JER 23:06
PROC: 3E033NZ Introduction of Analgesics, Hypnotics, Sedatives into Peripheral Vein, Percutaneous Approach (ICD-10-PCS; principal; 2023-05-27)
PROC: 3E033GC Introduction of Other Therapeutic Substance into Peripheral Vein, Percutaneous Approach (ICD-10-PCS; 2023-05-27)
DX: R51.9 Headache, unspecified (principal); R42 Dizziness and giddiness
CPT/HCPCS: 96374; 96375; 99284-25